=== PATIENT | male | born 1950 | race Caucasian/White ===

== ENCOUNTER 2017-01-11 21:20 | Emergency (ER) | payer OTHER ==
[~2017-01-11] VITALS: Ht 167.6 cm; Wt 69.2 kg
[~2017-01-11 21:20] MED LIST: ASPCH81 PO; CLOP1TAB15 PO; COENCAP9 PO; METO50TA16 PO; MULT-190 PO; MULTCAP98 PO; NTRGSL/4 UT; OMEG10007 PO; SIMV40TA2 PO; selenium PO
[2017-01-11 21:23] VITALS: TEMP 37; Ht 167.6 cm; Wt 69.2 kg
[2017-01-11] MEDS ORDERED: LIDOCAINE 4% W/AFRIN NASAL SOLN 4ML EXT STA (21:47)
[2017-01-11] MEDS ORDERED: ASPI1TAB83 PO (22:34)
[2017-01-11] MEDS ORDERED: EVER5TAB PO (22:34)
[2017-01-11] MEDS ORDERED: LUTE15CA PO (22:34)
[2017-01-11 22:40] VITALS: BP 160/87; PULSE 88; O2SAT 98
--- NOTE | 2017-01-11 23:06 | EMERGENCY ROOM VISIT NOTE ---
History First contact with patient: 21:36 Chief Complaint: NOSE BLEED (MINOR) Stated Complaint: NOSE BLEED History of Present Illness The patient is a 67 year old male who presents to the Emergency Room via private vehicle with complaints of "nosebleed". Patient states that he's been taking a new cancer drug, called a Affinator. He states that he's been taking this for 26 days for a neuroendocrine malignancy. He states that since taking this drug he will get nasal congestion shortly after ingestion, which is around 6 PM or 7 PM. He states that about a week ago he developed nosebleeds that sometimes will be from either the right or left nostril. He states that he'll take the medication and shortly thereafter will develop a nosebleed. He states that today he developed a nosebleed 45 minutes after taking the medication and has been experiencing a nosebleed for the past 3 hours from the right nostril. He states that in the past usually stops however this time it is not. He states that for the past week when he blows his nose he will experience red mucus. He states that he has also been sneezing lately and feels he may have a cold. He denies any lightheadedness, dizziness, chest pain, shortness of breath , fevers, chills, nausea, vomiting, cough, sputum production, bleeding from other areas to include mouth, eyes, rectum. Review of Systems A complete 10-point Review of Systems was discussed with the patient, with pertinent positives and negatives listed in the History of Present Illness. All remaining Review of Systems questions can be considered negative unless otherwise specified. 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 (8) Neuroendocrine carcinoma of pancreas (9) S/p insertion tunneled central venous access with SQ port (10) S/p pancreatectomy distal subtotal Surgical Problems: (1) H/O esophagogastroduodenoscopy (2) S/P cardiac cath (3) S/P inguinal hernia repair (4) S/P tonsillectomy Family History Diabetes mellitus MOTHER FH: cancer MOTHER Heart disease FATHER ( of [place] age 49) Social History Smoking Status: Former Smoker Alcohol Use: none Drug Use: none Marital Status: Housing Status: lives with significant other Occupation Status: unemployed Current/Historical Medications Scheduled Aspirin (Aspirin), 1 TAB PO DAILY Clopidogrel (Plavix), 75 MG PO DAILY Coenzyme [id number] Oil-Vitamin (Co-Q 10 Harrington-3 Fish Oil), 1 CAP PO DAILY Everolimus (Afinitor), Unknown Dose PO DAILY Fish Oil (Harrington-3), 1 CAP PO DAILY Lutein-Zeaxanthin (Lutein), 1 CAP PO DAILY Metoprolol Tartrate (Lopressor) (Lopressor), 0 PO UD Multiple Vitamins W/ Minerals (Icaps), 1 CAP PO DAILY Nitroglycerin (Nitrostat), 0.4 MG UT PRN Ocuvite Preservision (Ocuvite Preservision), 1 TAB PO DAILY Simvastatin (Zocor), 20 MG PO QPM [selenium], 100 MCG PO DAILY Allergies Coded Allergies: Erythromycin (Unverified Allergy, Unknown, rash, 01/11/17) Physical Exam Vital Signs Date Time Temp Pulse Resp B/P Pulse Ox O2 Delivery O2 Flow Rate FiO2 01/11/17 22:40 88 18 160/87 98 Room Air 01/11/17 21:23 37.0 79 18 194/100 98 Room Air Physical Exam VITAL SIGNS - Vital signs and nursing notes were reviewed. Afebrile, hypertensive at 194/100, non-tachycardic and is saturating well on room air 98%. GENERAL -67-year-old male appearing his stated age who is in no acute distress. Communicates well with provider and answers questions appropriately. SKIN - Without rashes. No petechial rashes. HEAD - NC/AT. EYES -Sclera anicteric. Palpebral conjunctiva pink and moist with no injection noted. No hyphema. EARS - No deformities of external structures noted on gross examination bilaterally. No pain elicited with palpation of the tragus bilaterally. External auditory canals without discharge or otorrhea. Tympanic membranes pearly umanzor without retraction or bulging. No fluid or purulent material visualized behind the TM. Handle of malleus, umbo, cone of light, pars tensa/ flaccid all easily visualized. NOSE - Midline and without cyanosis. There is evidence of blood in the right naris. Left nostril unremarkable. Both medial aspects of the nostrils reveal thinning of the mucosa, with irritation. No evidence of infection. Septum midline without deviation or septal hematoma noted. MOUTH/OROPHARYNX - Without perioral cyanosis. Buccal mucosa pink and moist and without leukoplakia. Tongue midline with equal elevation of palate bilaterally. No tonsillar hypertrophy, erythema, or exudates noted. Fair dentition noted. No blood in the posterior pharynx. Medical Decision & Procedures Medical Decision Patient was seen and evaluated as above. After obtaining a thorough history and physical examination it is apparent the patient is experiencing anterior nosebleeds secondary to irritated nasal mucosa. No current epistaxis. The etiology of this is uncertain, however because the patient has never had these in the past and now with the beginning of a new medication I do suspect this may be the cause. I at this time will not have the patient ceased the medication as I believe the benefit of ingesting the medication outweighs the risk. I initially was given a performed blood work, however the patient notes that he does have this performed frequently with the doctor who manages his cancer. He does not have any lightheadedness, or symptoms of symptomatically hypertension. There are no signs or symptoms suggestive of acute blood loss. Different options were provided to the patient regarding the epistaxis, and it was decided to begin with Afrin and a nasal clamp. I did not use lidocaine. Patient tolerated this well was reevaluated. I do suspect the patient is experiencing these secondary to fitting nasal mucosa which may be from the medication, and the patient does furnish documentation which shows that nosebleeds or side effect of the medication. Patient was offered nasal packing , however I do not believe this is appropriate. Patient did seem happy with plan of care and was discharged with the Afrin and nose clamp and was instructed to use the Afrin only when he expresses a nosebleed, and if persistent on 15 minutes he is to return to the emergency department. He was provided the number for an ear nose throat surgeon to follow-up regarding today' s visit and is to call his doctor that manages the cancer medication regarding this side effect. He was instructed to continue all his medications. He is to return with worsening. He was educated upon management of today's findings, questions or discharge, was educated upon worrisome symptoms in which to return , and was discharged home in good condition. Prior to his discharge the patient did have his vitals repeated. His blood pressure did return to a more acceptable level. Patient notes that he did take his blood pressure medication today, and does not have any symptoms suggestive of hypertension. He notes that his blood pressure typically is pretty normal. I do believe that he may be discharged but is to return with any worsening. In the evaluation and treatment of this patient the following differential diagnoses were entertained: Anterior epistaxis, posterior epistaxis, medication side effect, hypertensive emergency, among others. Impression Primary Impression: Epistaxis Departure Information Dispostion Home / Self-Care Condition GOOD Referrals Marcelo Snider MD (PCP) Landon Munson M.D. Patient Instructions My [facility] Additional Instructions You have been treated in the Emergency Department today for your Nose Bleed ( Epistaxis). Do NOT blow your nose for the next few days. This can result in recurrence of your nosebleed. You should consider using a humidifier to help moisten the air and decrease instances of nosebleeds. You can use [id number]-[id number] saline nasal sprays to help moisten the nasal mucosa and decrease instances of nosebleeds. You may use the AFRIN nasal spray only when you experience a nose bleed, then use the clamp for 15 minutes, return if persists. As with any trip to the Emergency Department, you should follow-up with your Primary Care Provider from today's visit. You have been provided number for an clinical research analyst. (Dr. Munson) Please call the number first thing Saturday. Please call your oncologist first thing Saturday as we discussed. Return to the emergency department if your symptoms persist despite treatment plan outlined above or if the following symptoms occur: uncontrollable nosebleed , dizziness, lightheadedness, pre-syncope, or re-bleed.
== END 2017-01-11 23:08 | disposition home or self-care (01) ==
LOC: C.EDB 21:21 → C.EDC 23:08
DX: R04.0 Epistaxis (principal); C25.9 Malignant neoplasm of pancreas, unspecified; C78.7 Secondary malignant neoplasm of liver and intrahepatic bile duct; C78.6 Secondary malignant neoplasm of retroperitoneum and peritoneum; I25.10 Atherosclerotic heart disease of native coronary artery without angina pectoris; D64.9 Anemia, unspecified; E78.5 Hyperlipidemia, unspecified; I10 Essential (primary) hypertension; Z83.3 Family history of diabetes mellitus; Z80.9 Family history of malignant neoplasm, unspecified; Z82.49 Family history of ischemic heart disease and other diseases of the circulatory system; Z87.891 Personal history of nicotine dependence; Z79.82 Long term (current) use of aspirin; Z79.02 Long term (current) use of antithrombotics/antiplatelets; Z79.899 Other long term (current) drug therapy

== ENCOUNTER → 2017-02-12 | Outpatient (CLI) | payer OTHER ==
[~2017-02-12] MED LIST changes: -ASPCH81 PO; +ASPI1TAB83 PO; +EVER5TAB PO; +LUTE15CA PO
--- NOTE | 2017-02-12 16:36 | DIAGNOSTIC IMAGING REPORT ---
Venous Doppler right leg RIGHT VENOUS DOPP LOWER EXT UNILAT CLINICAL HISTORY: R/O DVT SEEN ON CT SCAN RIGHT LEG Right TECHNIQUE: Venous Doppler COMPARISON STUDY: None FINDINGS: Normal study IMPRESSION: Normal study Electronically signed by: Erwin Graves M.D. 02/12/2017 4:35 PM Dictated Date/Time: 02/12/2017 4:34 PM
== END | disposition home or self-care (01) ==
LOC: C.ULTR 16:03
PROVIDERS: ATTEND Internal Medicine Hematology
DX: D3A.8 Other benign neuroendocrine tumors (principal); C78.6 Secondary malignant neoplasm of retroperitoneum and peritoneum; I82.411 Acute embolism and thrombosis of right femoral vein

== ENCOUNTER → 2017-03-29 | Outpatient (CLI) | payer OTHER ==
[~2017-03-29] MED LIST changes: +OPTIRAY 320 IV PRN
--- NOTE | 2017-03-29 14:08 | DIAGNOSTIC IMAGING REPORT ---
CT SCAN OF THE ABDOMEN AND PELVIS WITH IV CONTRAST CLINICAL HISTORY: Generalized abdominal pain. Distention. Reported history of pancreatic neuroendocrine tumor. COMPARISON STUDY: Abdominal CT dated 08/30/2014 and 08/10/2011. TECHNIQUE: Following the IV administration of 94 cc of Optiray 320, CT scan of the abdomen and pelvis is performed from the lung bases to the proximal femora. Images are reviewed in the axial, sagittal, and coronal planes. IV contrast was administered without complication. Automated dose control exposure was utilized. CT DOSE: 496.79 mGy.cm FINDINGS: Lung bases: The heart is enlarged and there is trace pericardial effusion. The coronary arteries are densely calcified. A small hiatal hernia is observed. There is a small left pleural effusion with left basilar atelectasis The lung bases are otherwise clear. Liver: The contrast-enhanced liver is normal in size and contour. The hepatic veins and portal veins are patent. There is evidence of diffuse/multifocal hepatic metastatic disease. Lesions are present throughout all hepatic lobes. The largest mass or conglomerate of masses largely replaces the left lobe and measures 9 cm in aggregate dimension. Biliary ductal dilatation is seen in the left lobe, likely due to mass effect from hepatic lesions. Gallbladder: Not identified and presumed surgically absent. Spleen: Surgically absent. Pancreas: The pancreatic head and neck are normal as imaged. The distal pancreas is surgically absent. Adrenal glands: Unremarkable. Kidneys: The contrast enhanced kidneys demonstrate cortical atrophy. There is minimal right and moderate left hydronephrosis, likely related to mass effect from large pelvic lesions. The kidneys enhance symmetrically. There is a 3 cm enhancing lesion in the posterior interpolar right kidney, likely representing a renal metastasis. A 12 mm cyst is noted in the right lower pole. Abdominal vasculature: The abdominal aorta is normal in course and caliber noting moderate atherosclerotic calcification. Bowel: The small bowel and colon are normal in course and caliber. Fecal retention is noted in the right colon. The appendix is not clearly identified. Peritoneum: There is a moderate volume of abdominopelvic ascites. No intraperitoneal free air is seen. There is evidence of peritoneal carcinomatosis, with diffuse omental caking identified. There is a large multilobulated and predominantly cystic metastatic lesion filling the pelvis. This demonstrate a rind of peripheral soft tissue/nodularity nodularity and measures approximately 20 x 14 x 15 cm in aggregate dimension and displaces the pelvic viscera. There is the solid and cystic enhancing implant along the ventral aspect of the transverse colon seen on image #164. This measures 2.0 x 3.2 cm. Enhancing mass lesion is present within a tiny ventral hernia on image #204. Lymphadenopathy: None. Pelvic viscera: The bladder is decompressed and grossly unremarkable. The prostate is normal as imaged. There are small bilateral inguinal hernias. The right inguinal hernia contains a segment of the bladder. The left inguinal hernia contains fluid and probable metastatic implants. Skeletal structures: The skeletal structures are osteopenic. No lytic or blastic lesions are seen. IMPRESSION: 1. Overall significant progression of diffuse/multifocal metastatic disease as compared to 08/30/2014. 2. There is evidence of peritoneal carcinomatosis with numerous large peritoneal implants and a moderate volume of abdominopelvic ascites. 3. A large metastatic lesion filling the pelvis measures up to 20 cm. This displaces the surrounding pelvic viscera. 4. There is moderate left and minimal right hydroureteronephrosis, likely secondary to mass effect from the large pelvic lesion. 5. Findings are consistent with multifocal hepatic metastatic disease. 6. A right renal metastasis is observed. 7. No bowel obstruction is identified. Fecal retention is seen in the right colon. 8. Postoperative change and additional findings as above. Electronically signed by: Gomez Cardoso M.D. 03/29/2017 2:06 PM Dictated Date/Time: 03/29/2017 1:53 PM
== END | disposition home or self-care (01) ==
LOC: C.CTS 13:09
PROVIDERS: ATTEND Internal Medicine
DX: R10.9 Unspecified abdominal pain (principal); R19.5 Other fecal abnormalities; C25.9 Malignant neoplasm of pancreas, unspecified; C79.01 Secondary malignant neoplasm of right kidney and renal pelvis; C78.6 Secondary malignant neoplasm of retroperitoneum and peritoneum